=== PATIENT | male | born 1970 | race American Indian/Alaskan Native ===

== ENCOUNTER 2019-03-30 05:44 | Emergency (ER) | payer OTHER ==
[2019-03-30 06:02] VITALS: BP 124/74
[2019-03-30 06:21] LABS: Bilirubin,Urine NEG (Negative); Blood,Urine NEG (Negative); Color,Urine Colorless (Yellow); Protein,Urine <15 mg/dL mg/dL (Negative); Urobilinogen,Urine < 2.0 mg/dL (<2.0); WBC,Urine < 1.0 /HPF (0.0-6.0)
[2019-03-30 06:29] LABS: RBC,Urine < 1.0 /HPF (0.0-6.0)
[2019-03-30] MEDS ORDERED: dexAMETHasone 20 MG/5 ML VIAL IM ONE (06:34)
[2019-03-30] MEDS ORDERED: dexAMETHasone 4 MG/ML VIAL IV ONE (06:34)
[2019-03-30] MEDS ORDERED: ONDANSETRON 4 MG ODT TAB PO ONE (06:34)
[2019-03-30] MEDS ORDERED: HYDROmorphone 1 MG/1 ML INJ IM ONE (06:34)
--- NOTE | 2019-03-30 06:38 | Emergency Department Report ---
ED Back Pain/Injury HPI - General Chief Complaint: Back Pain/Injury Stated Complaint: L SIDE BACK PAIN Source: patient Limitations: No Limitations - History of Present Illness Initial Comments: Patient is a 49-year-old -[place] male with no past medical history who presents to the ED with complaint of acute onset of nontraumatic low back pain for the last 2 days. Patient states that he woke up with pain 2 days ago and has been taking [id number] with no relief. Patient denies dizziness, fever, chills, dysuria, urinary frequency and urgency, hematuria, abdominal pain, nausea, vomiting, testicular pain, fall, traumatic injury, heavy lifting, urinary or bowel incontinence, saddle paresthesia, numbness and tingling or weakness of lower extremities bilaterally. MD Complaint: back pain (lower back pain) -: Sudden, days(s) (2) Similar Symptoms Previously: No Place: home Radiation: none Severity: severe Severity scale (0 -10): 8 Quality: sharp, aching Consistency: constant Improves With: none Worsens With: movement, walking Context: other (spontaneous, woke up with pain) Associated Symptoms: denies other symptoms. denies: confusion, weakness, chest pain, numbness, difficulty walking, cough, difficulty urinating, diaphoresis, incontinence, fever/chills, constipation, headaches, abdominal pain, loss of appetite, malaise, nausea/vomiting, seizure, shortness of breath, other Treatments Prior to Arrival: NSAIDS - Related Data Previous Rx's Medication Instructions Recorded Last Taken Type Ibuprofen [Motrin] 800 mg PO Q8HR PRN #30 tablet 06/16/15 Unknown Rx Oxycodone HCl/Acetaminophen 1 each PO Q6HR PRN #20 tablet 06/16/15 Unknown Rx [Percocet 10/325 mg] Naproxen 500 mg PO Q12H PRN #30 tablet 03/30/19 Unknown Rx Prednisone [predniSONE 10 mg 10 mg PO .TAPER #21 tab.ds.pk 03/30/19 Unknown Rx (6-Day Pack, 21 Tabs)] methOCARBAMOL [Robaxin TAB] 750 mg PO Q8H PRN #30 tablet 03/30/19 Unknown Rx traMADol [Ultram] 50 mg PO Q6HR PRN #12 tablet 03/30/19 Unknown Rx Allergies Allergy/AdvReac Type Severity Reaction Status Date / Time No Known Allergies Allergy Unverified 06/16/15 09:24 ED Review of Systems ROS: Stated complaint: L SIDE BACK PAIN Other details as noted in HPI Constitutional: denies: chills, fever Eyes: denies: eye pain, eye discharge, vision change ENT: denies: ear pain, throat pain Respiratory: denies: cough, shortness of breath, wheezing Cardiovascular: denies: chest pain, palpitations Endocrine: no symptoms reported Gastrointestinal: denies: abdominal pain, nausea, diarrhea Genitourinary: denies: urgency, dysuria Musculoskeletal: back pain (lower back ), arthralgia, myalgia. denies: joint swelling Skin: denies: rash, lesions Neurological: denies: headache, weakness, paresthesias Psychiatric: denies: anxiety, depression Hematological/Lymphatic: denies: easy bleeding, easy bruising ED Past Medical Hx - Past Medical History Previous Medical History?: No - Surgical History Past Surgical History?: No - Social History Smoking Status: Former Smoker Substance Use Type: Alcohol - Medications Home Medications: Home Medications Medication Instructions Recorded Confirmed Last Taken Type Ibuprofen [Motrin] 800 mg PO Q8HR PRN #30 tablet 06/16/15 Unknown Rx Oxycodone HCl/Acetaminophen 1 each PO Q6HR PRN #20 tablet 06/16/15 Unknown Rx [Percocet 10/325 mg] Naproxen 500 mg PO Q12H PRN #30 tablet 03/30/19 Unknown Rx Prednisone [predniSONE 10 mg 10 mg PO .TAPER #21 tab.ds.pk 03/30/19 Unknown Rx (6-Day Pack, 21 Tabs)] methOCARBAMOL [Robaxin TAB] 750 mg PO Q8H PRN #30 tablet 03/30/19 Unknown Rx traMADol [Ultram] 50 mg PO Q6HR PRN #12 tablet 03/30/19 Unknown Rx ED Physical Exam - General Limitations: No Limitations General appearance: alert, in no apparent distress - Head Head exam: Present: atraumatic, normocephalic, normal inspection - Eye Eye exam: Present: normal appearance, PERRL, EOMI Pupils: Present: normal accommodation - ENT ENT exam: Present: normal exam, normal orophraynx, mucous membranes moist, TM's normal bilaterally, normal external ear exam - Neck Neck exam: Present: normal inspection, full ROM - Respiratory Respiratory exam: Present: normal lung sounds bilaterally. Absent: respiratory distress, wheezes, rales, rhonchi, stridor, chest wall tenderness, accessory muscle use, decreased breath sounds, prolonged expiratory - Cardiovascular Cardiovascular Exam: Present: regular rate, normal rhythm, normal heart sounds. Absent: systolic murmur, diastolic murmur, rubs, gallop - GI/Abdominal GI/Abdominal exam: Present: soft, normal bowel sounds. Absent: tenderness, guarding, organomegaly - Rectal Rectal exam: Present: deferred - Extremities Exam Extremities exam: Present: normal inspection, full ROM, normal capillary refill - Back Exam Back exam: Present: normal inspection, tenderness (Palpable lumbosacral paraspinal musculoskeletal tenderness), muscle spasm, paraspinal tenderness. Absent: full ROM ( Limited range of motion due to pain in the lumbosacral area) - Neurological Exam Neurological exam: Present: alert, oriented X3, CN II-XII intact, normal gait, reflexes normal - Psychiatric Psychiatric exam: Present: normal affect, normal mood - Skin Skin exam: Present: warm, dry, intact, normal color. Absent: rash ED Course Vital Signs 03/30/19 05:52 Temperature 98.3 F Pulse Rate 84 Respiratory 18 Rate Blood Pressure 124/74 O2 Sat by Pulse 98 Oximetry - Reevaluation(s) Reevaluation #1: 03/30/19 06:39 This is a 49-year-old male with no past medical history presented to the ED with acute onset of nontraumatic low back pain for 2 days despite taking [id number] ibuprofen. In the ED, patient is alert and oriented 3 and is not in distress but appears to be in significant pain. Urinalysis is unremarkable. Patient was treated for pain in the ED and on reevaluation, patient's pain is well controlled with medications and patient was discharged home on pain medications and muscle relaxants and advised to follow-up with his primary care physician 5-7 days for reevaluation or return to the ED immediately if symptoms get worse. ED Medical Decision Making - Medical Decision Making This is a 49-year-old male with no past medical history presented to the ED with acute onset of nontraumatic low back pain for 2 days despite taking [id number] ibuprofen. In the ED, patient is alert and oriented 3 and is not in distress but appears to be in significant pain. Urinalysis is unremarkable. Patient's symptoms are likely due to musculoskeletal spasms of the lumbosacral area since there is no history of trauma, heavy lifting, fall and urinalysis is negative for hematuria suspect any kidney stones. Patient was treated for pain in the ED and on reevaluation, patient's pain is well controlled with medications and patient was discharged home on pain medications and muscle relaxants and advised to follow-up with his primary care physician 5- 7 days for reevaluation or return to the ED immediately if symptoms get worse. - Differential Diagnosis Muscle spasm of back; Muscle strain of lower back Critical care attestation.: If time is entered above; I have spent that time in minutes in the direct care of this critically ill patient, excluding procedure time. ED Disposition Clinical Impression: Spasm of muscle of lower back, Strain of muscle, fascia and tendon of lower back, initial encounter Acute low back pain Qualifiers: Back pain laterality: unspecified Sciatica presence: without sciatica Qualified Code(s): M54.5 - Low back pain Disposition: TO HOME OR SELFCARE Is pt being admited?: No Does the pt Need Aspirin: No Condition: Stable Instructions: Muscle Strain (ED), Muscle Spasm (ED), Acute Low Back Pain (ED) Additional Instructions: Take medications with food, drink plenty of fluids and follow up with your primary care physician in 5-7 days for reevaluation. Return to the ED immediately if symptoms get worse. Prescriptions: Naproxen 500 mg PO Q12H PRN #30 tablet PRN Reason: Pain , Severe (7-10) Prednisone [predniSONE 10 mg (6-Day Pack, 21 Tabs)] 10 mg PO .TAPER #21 tab.ds.pk methOCARBAMOL [Robaxin TAB] 750 mg PO Q8H PRN #30 tablet PRN Reason: Muscle Spasm traMADol [Ultram] 50 mg PO Q6HR PRN #12 tablet PRN Reason: Pain Referrals: CLAUDIA ORTA MD [Staff Physician] - 3-5 Days Forms: Work/School Release Form(ED) Time of Disposition: 06:44 Print Language: BELIZEAN
== END 2019-03-30 07:32 | disposition home or self-care (01) ==
LOC: ED 05:44
DX: S39.012A Strain of muscle, fascia and tendon of lower back, initial encounter (principal); M62.830 Muscle spasm of back; Z87.891 Personal history of nicotine dependence; X58.XXXA Exposure to other specified factors, initial encounter; Y93.89 Activity, other specified; Y92.009 Unspecified place in unspecified non-institutional (private) residence as the place of occurrence of the external cause; Y99.8 Other external cause status
CPT/HCPCS: 81001; 96372; 99283; J1100; J1170; Q0162